=== PATIENT | male | born 1975 | race African-American/Black ===

== ENCOUNTER → 2016-10-21 | Day surgery (SDC) | payer OTHER ==
[~2016-10-21] MED LIST: BUPIVACAINE/EPINEPHRINE 0.25% 50 ML VIAL ONE; BUPIVACAINE/EPINEPHRINE 0.5% PF 30 ML VIAL ONE; KETOROLAC TROMETHAMINE 30 MG/ML (IVP) VIAL IV PUSH ONE; LACTATED RINGER'S 1000 ML INJ 1,000 ML ONE; MIDAZOLAM HCL 2 MG/2 ML VIAL ONE; MORPHINE SULFATE 4 MG/ML INJ ONE; ONDANSETRON HCL 4 MG/2 ML VIAL IV PUSH ONE; PROPOFOL 200 MG/20 ML AMP IV ONE; ceFAZolin INJ 1,000 MG VIAL ONE
--- NOTE | 2016-10-21 20:37 | MP ---
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 PROCEDURE Left knee arthroscopic partial medial meniscectomy and gentle chondroplasty ANESTHESIA General SURGEON Luis Pineda MD ESTIMATED BLOOD LOSS Minimal. DRAINS None SPECIMEN None. COMPLICATIONS None known. INDICATION Jose Gil is an adult male who underwent knee arthroscopy in the past and has significant recurrent symptoms and new MRI appears to show an ongoing meniscus tear as well as significant chondromalacia. He is failing conservative management for this problem. He is offered arthroscopy. Risks, benefits thoroughly discussed. No guarantees were offered. PROCEDURE IN DETAIL The patient was brought to the operating room. He was placed under general anesthetic. The left lower extremity was prepped and draped in usual sterile fashion. IV antibiotics were given. Time-out was completed. Marcaine injected about the inferolateral portal. Portal made. Blunt trocar used to introduce the cannula. Then insufflated with saline. The patellofemoral joint showed chondromalacia. There was also some small debris floating around the knee and so we first photographed the ACL and then the lateral compartment and then we went into the medial compartment where we saw diffuse chondromalacia in the weightbearing portion of medial femoral condyle and also on the medial edge of the medial plateau as well as unstable fraying along the mid body of the meniscus and into the posterior horn. We proceeded with arthroscopic partial medial meniscectomy primarily using the shaver and we shaved the condyle with the shaver 90 degrees to the face of the condyle to just remove any unstable chondromalacia which was hanging down. Also there was delaminated chondromalacia within the trochlear groove and this was addressed in a similar fashion. We switched over switching stick to get appropriate angle to address the unstable cartilage in this location. There was also scar tissue where the old portals had been made and this was resected and hemostasis obtained with the use electrocautery. We switched over switching stick and then went back and we smoothed and contoured, took our final photographs and then did a repeat diagnostic arthroscopy, confirmed no loose bodies. Arthroscopic equipment was removed. Marcaine had been injected about the portals. Steri-Strips applied. Sterile dressing applied. The patient was awaken and returned to recovery room in stable condition. MD APRIL Austin /10:54 AM /8:27 PM
== END | disposition home or self-care (01) ==
LOC: ESDC 07:51
PROVIDERS: ATTEND Orthopaedic Surgery Sports Medicine
DX: S83.242A Other tear of medial meniscus, current injury, left knee, initial encounter (principal); M94.262 Chondromalacia, left knee
CPT/HCPCS: 01400; 29881; J0690; J1885; J2270; J2405; J3010; J7120; J2250

== ENCOUNTER → 2017-10-26 | Day surgery (SDC) | payer OTHER ==
--- NOTE | 2017-10-25 13:14 | MH ---
cc: Parveen Martinez MD DATE OF ADMISSION: 10/26/2017 DIAGNOSIS: Tear Achilles tendon, right. HISTORY OF PRESENT ILLNESS: About a week ago, he was at a [employer] basketball game when he injured the right leg, coming down after jumping followed by pain and swelling. He was seen at the [facility] where they x-rayed him and gave him crutches, referred him for outpatient care. He was seen by the undersigned for the first time on , 10/20/2017. At this time, he was referred for an MRI scan. MRI scan done this morning, which confirms the diagnosis. He is being now brought into the hospital tomorrow for same day surgery for repair of the Achilles tendon with possible augmentation with graft jacket. The diagnosis, the treatment, the prognosis and the potential risks, hazards and complications and expected results and postoperative care, duration of immobilization, duration of crutches are all being discussed in great detail. Informed consent has been obtained. No guarantees made. PERSONAL/SOCIAL HISTORY: Works at [employer] doing fairly heavy work, standing on his feet all day. PAST SURGICAL HISTORY: Arthroscopic surgery, left knee and history of lower back problems. MEDICATIONS: None. ALLERGIES: NONE. PHYSICAL EXAMINATION: GENERAL: Reveals a 6 feet 2 inches tall, 255 pound black male who walks with crutches, partial weightbearing on the right leg. EXTREMITIES: Examination of the back of the right ankle and leg reveals evidence of a lack of prominence of the Achilles tendon. There is a positive Andrade's test in that the foot does not plantarflex when the calf is squeezed. There is a defect palpable when we palpate the posterior aspect of the Achilles tendon. There are no neurovascular deficits in the right foot. HEENT: Head is normocephalic. Pupils are reacting to light. Face Symmetrical. HEART: Regular rhythm. No murmurs. LUNGS: Clear to auscultation. ABDOMEN: Soft and supple. IMAGING STUDIES: MRI scan confirms the clinical diagnosis of tear of the Achilles tendon. The patient to be taken to the operating room for surgical repair. Parveen Martinez MD SS/TL , 12:38 PM , 12:55 PM
[~2017-10-26] VITALS: Ht 188 cm; Wt 116.4 kg
[~2017-10-26] MED LIST changes: +*morphine SULFATE 4 MG/ML PERIprocedure ONLY ONE; +ACETAMINOPHEN 1000 MG/100 ML 100 ML IV ONE; +ACETAMINOPHEN/HYDROcodone 325 MG/5 MG TAB PO PRN; -BUPIVACAINE/EPINEPHRINE 0.25% 50 ML VIAL ONE; -BUPIVACAINE/EPINEPHRINE 0.5% PF 30 ML VIAL ONE; +CHLORHEXIDINE GLUCONATE 2 % 1 PACK (2 CLOTHS) TOPICAL PRN; +CYCL10TA PO; +DEXAMETHASONE SOD PHOS 4 MG/ML VIAL IV ONE; +DEXAMETHASONE SOD PHOS PF 10 MG/ML VIAL ONE; +DO NOT ADM ANY ANTICOAGULANT DRUGS PRN; +GLYCOPYRROLATE 1 MG/5 ML SYRINGE IV PUSH ONE; +HYDR-4107 PO; -KETOROLAC TROMETHAMINE 30 MG/ML (IVP) VIAL IV PUSH ONE; +LACTATED RINGER'S 1000 ML INJ 1,000 ML IV ONE; +LACTATED RINGER'S 1000 ML INJ 1,000 ML IV SCH; -LACTATED RINGER'S 1000 ML INJ 1,000 ML ONE; +LACTATED RINGER'S 1000 ML IV PRN; +LIDOCAINE HCL 1% PF 5 ML SYRINGE OTHER ONE; +METOPROLOL TARTRATE 25 MG TAB PO PRN; -MORPHINE SULFATE 4 MG/ML INJ ONE; +MORPHINE SULFATE 8 MG/ML INJ IV PUSH PRN; +NAPR500 PO; +NEOSTIGMINE 5 MG/5 ML SYRINGE IV PUSH ONE; +ONDANSETRON ODT 4 MG TAB PO PRN; +POVIDONE IODINE 5% (ANTISEPSIS KIT) 4 APPLICATIONS EACH NARE PRN; +POVIDONE IODINE 7.5% SCRUB 118 ML BOTTLE TOPICAL SCH; +ROCURONIUM INJ 50 MG/5 ML SYRINGE IV PUSH ONE; +SODIUM CHLOR 0.9% 250 ML INJ 250 ML ONE; +SODIUM CHLORID 0.9% 500 ML IV PRN; +TRAM50TA PO; +VANCOMYCIN 1500 MG/NS 500 ML (for 85-99 kg) IV SCH; +VANCOMYCIN 500 MG VIAL ONE; +VANCOMYCIN HCL 1000 MG VIAL ONE; +ceFAZolin 2 GM PREMIX 50 ML IV SCH; -ceFAZolin INJ 1,000 MG VIAL ONE
[2017-10-26 09:20] LABS: AUTOMATED NEUTROPHIL # 2.6 TH/MM3 (1.8-7.7); BASOPHIL % 0.6 % (0.0-2.0); EOSINOPHIL # 0.1 TH/MM3 (0-0.4); EOSINOPHIL % 1.9 % (0.0-4.0); HEMATOCRIT 43.7 % (39.0-51.0); HEMOGLOBIN 14.5 GM/DL (13.0-17.0); LYMPH % 47.3 % (9.0-44.0); LYMPHOCYTE # 2.9 TH/MM3 (1.0-4.8); MEAN CELL VOLUME 85.9 FL (80.0-100.0); MEAN CORPUSCULAR HEMOGLOBIN 28.5 PG (27.0-34.0); MEAN CORPUSCULAR HGB CONC 33.1 % (32.0-36.0); MEAN PLATELET VOLUME 7.4 FL (7.0-11.0); MONO % 7.7 % (0.0-8.0); MONOCYTE # 0.5 TH/MM3 (0-0.9); NEUT % 42.5 % (16.0-70.0); PLATELET COUNT 220 TH/MM3 (150-450); RED BLOOD COUNT 5.08 MIL/MM3 (4.50-5.90); RED CELL DISTRIBUTION WIDTH 14.7 % (11.6-17.2); WHITE BLOOD COUNT 6.2 TH/MM3 (4.0-11.0)
[2017-10-26 09:36] VITALS: PULSE 70
[2017-10-26 09:53] LABS: BICARBONATE 27.2 MEQ/L (21.0-32.0); CALCIUM 8.6 MG/DL (8.5-10.1); CREATININE 1.08 MG/DL (0.60-1.30)
--- NOTE | 2017-10-26 13:38 | MP ---
cc: Parveen Martinez MD DATE OF OPERATION: 10/26/2017 DATE OF SURGERY: 10/26/2017 PREOPERATIVE DIAGNOSIS: Tear Achilles tendon, right. POSTOPERATIVE DIAGNOSIS: Tear Achilles tendon, right. OPERATIVE PROCEDURE: Repair torn Achilles tendon, right. SURGEON: Parveen Martinez MD ANESTHESIA: General. PROCEDURE TECHNIQUE: After induction of general anesthesia, the patient was placed in prone position with appropriate protection to support upper and lower extremities and the hips and knees properly flexed and padded. The right leg and ankle and foot thoroughly prepped with alcohol and ChloraPrep, draped in routine fashion. After application of an Esmarch bandage, tourniquet inflated to 300 mmHg. The skin incision was marked medial to the Achilles tendon going proximally towards the midline of the lower calf. Ioban drape was applied. Skin incision was made and the paratenon was taken with the subcutaneous tissue. Elevation was carried up. As evidenced by the MRI, the tear was about 7 cm above the Achilles tendon. The tear was delineated. A proximal exposure was carried out to the distal portion of the musculotendinous junction. The tear was sort of an oblique tear with a lot of stressed fibers that were not necessarily torn, but there was complete disruption; however, as far as function is concerned. A #5 FiberWire suture was then threaded through the proximal and distal segments, about 3 cm on the distal segment and about 5 cm on the proximal segment in a modified [place] fashion so these sutures could be tied laterally underneath the skin flap and the paratenon. This was held with hemostats. A #2 FiberWire was then passed through the medial and lateral third of the Achilles tendon distally and brought out at the tear site and held with hemostats. This was placed in a modified Kr[place]ow fashion. A similar suture of #2 FiberWire was placed through the proximal segment for a distance of about 4-5 cm in a modified Krackow fashion and the ends of the FiberWire brought out at the side of the tear. As the foot was slightly plantarflexed, the 2 segments of the #5 suture were brought together and tied, getting good coaptation of the tear without any undue plantar flexion. A #2 FiberWire sutures now tied and all sutures cut. A strip of graft jacket approximately 1.5 cm wide and about 5 cm long was placed over the repair with the tissue side facing anteriorly and this was then tacked down to the repair with #2 Vicryl sutures. The paratenon was lapped over this and sutured with some #2 Vicryl also. The skin and subcutaneous tissue, including some of the paratenon, all closed in a single layer of interrupted vertical mattress 2-0 nylon sutures. Dressing was applied with Xeroform, 4 x 4's, ABD, and soft roll and a posterior fiberglass splint was applied, holding the foot in gravity equinus position. The patient transferred to recovery room in satisfactory condition. The patient tolerated the procedure well. TRANSFUSIONS: None. COMPLICATIONS: None. POSTOPERATIVE CONDITION: Satisfactory. PROGNOSIS: Good. ESTIMATED BLOOD LOSS: 15 mL. It should be noted the tourniquet was deflated prior to any closure. MD LAURA Cao/RANJEET , 01:13 PM , 01:36 PM
--- NOTE | 2017-10-26 13:54 | EKG ---
Date Performed: 10/26/2017 Time Performed: 09:03:39 PTAGE: 41 years EKG: Sinus rhythm MARKED LEFT AXIS DEVIATION INCOMPLETE RIGHT BUNDLE BRANCH BLOCK ST ELEVATION, PROBABLY EARLY REPOLAR IZATION ABNORMAL ECG NO PREVIOUS TRACING DOCTOR: Campbell Boyer Interpretating Date/Time 10/26/2017 13:52:56
[2017-10-26 14:35] VITALS: TEMP 97.5
[2017-10-26 15:30] VITALS: BP 160/77; PULSE 84; RESP 16; O2SAT 99
== END | disposition home or self-care (01) ==
LOC: HSDC 08:15
PROVIDERS: ATTEND Orthopaedic Surgery
DX: S86.011A Strain of right Achilles tendon, initial encounter (principal); R94.31 Abnormal electrocardiogram [ECG] [EKG]
CPT/HCPCS: 00400; 01472; 15271; 27650; 64450; 80048; 85025; 93005; J0131; J0690; J1100; J2250; J2270; J2405; J2710; J3010; J3370; J7050; J7120; Q4107